=== PATIENT | female | born 1955 | race Caucasian/White ===

== ENCOUNTER → 2016-10-18 | Outpatient (CLI) | payer BC ==
[2016-10-18 17:38] LABS: ANION GAP 14 MEQ/L (5-15); BUN/CREATININE RATIO 18 RATIO (6-26); CALCIUM 9.7 MG/DL (8.4-10.2); CHLORIDE 102 MEQ/L (98-107); CK - CPK 72 U/L (30-135); CO2 - CARBON DIOXIDE 26 MEQ/L (22-30); CREATININE 0.9 MG/DL (0.7-1.2); GLOMERULAR FILTRATION RATE 64; GLUCOSE 89 MG/DL (65-110); POTASSIUM 4.2 MEQ/L (3.6-5); SODIUM 142 MEQ/L (134-144)
[2016-10-18 17:41] LABS: HEMOGLOBIN A1C 5.2 % (6.1-7.9)
== END ==
LOC: LAB 16:54
PROVIDERS: ATTEND Psychiatry & Neurology Neurology
DX: G60.9 Hereditary and idiopathic neuropathy, unspecified (principal)
CPT/HCPCS: 80048; 82550; 82607; 82746; 83036; 84155; 84165; 84443; 85652; 86038

== ENCOUNTER → 2016-10-20 | Outpatient (CLI) | payer BC ==
[~2016-10-20] MED LIST: GADOBUTROL 10mMol/10ml INJECTION IV ONE; SALINE FLUSH 10ml SYRINGE ONE
--- NOTE | 2016-10-21 08:32 | DI ---
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 Contrast: 8 mL of Gadavist FINDINGS: The ventricles are of normal size, shape, and contour for the patient's age. Stable 1 cm T2/FLAIR hyperintense nonenhancing lesion in the superior right parietal lobe near the ventricles seen on axial image #19. No new white matter lesions. The brain stem, cerebellum, and cerebral hemispheres otherwise have a normal morphologic appearance as well as MR signal intensity on all pulse sequences. Following intravenous administration of contrast, no areas of abnormal enhancement are evident. There are no areas of restricted diffusion to suggest an acute infarct. There is no evidence of an intracranial mass lesion, intracranial hemorrhage, or hydrocephalus. The visualized portions of the orbits, calvarium, and skull base demonstrate no significant abnormality. Moderate mucosal thickening in the maxillary sinuses, slightly improved from the comparison. IMPRESSION: Stable right parietal white matter lesion, nonspecific. No new or worsening white matter disease appreciated. .
== END ==
LOC: IMA 17:45
PROVIDERS: ATTEND Psychiatry & Neurology Neurology
DX: G43.109 Migraine with aura, not intractable, without status migrainosus (principal)
CPT/HCPCS: 70553; A9585; J1642